=== PATIENT | male | born 1970 | race Caucasian/White ===

== ENCOUNTER 2019-12-24 21:25 | Emergency (ER) | payer MEDICARE, OTHER ==
[2019-12-24] MEDS ORDERED: BABY ASPIRIN 81 MG CHEW PO ONE (21:26)
[2019-12-24] MEDS ORDERED: Sodium Chloride 0.9% 1000 ML 1,000 ML IV ONE (21:26)
[2019-12-24] MEDS ORDERED: Sodium Chloride 0.9% 1000 ML 1,000 ML ONE (21:58)
[2019-12-24 23:09] LABS: Hematocrit 34.7 % (42-50); Red Blood Count 3.57 M/mm3 (4.1-5.6); White Blood Count 10.3 K/mm3 (4.0-10.5)
[2019-12-24 23:10] LABS: Mean Cell Volume 97.2 fl (78-100); Mean Corpuscular Hemoglobin 33.6 pg (26-32); Mean Corpuscular Hgb Concent. 34.6 g/dl (32-36); Mean Platelet Volume 11.1 fl (7.5-11.0); Platelet Count 202 K/mm3 (150-450)
[2019-12-24 23:11] LABS: Creatinine 1 1.73 mg/dL (0.66-1.25); Red Cell Distribution Width 12.4 % (11.5-14.0)
[2019-12-24 23:12] LABS: ALBUMIN 4.6 g/dL (3.5-5.0); BILIRUBIN,TOTAL 0.6 mg/dL (0.2-1.3); Calcium 10.4 mg/dL (8.4-10.2); Total Protein 7.7 g/dL (6.3-8.2)
[2019-12-24 23:13] LABS: TROPONIN 0.043 ng/mL (0.000-0.034)
[2019-12-25] MEDS ORDERED: Keppra 500 MG/5 ML ONE (00:02)
[2019-12-25] MEDS ORDERED: D5w 100ML Mini Bag 100 ML 100 ML IV ONE (00:02)
--- NOTE | 2019-12-25 09:09 | XRAY ---
Exam: CT of the head without IV contrast from 12/24/2019. CTDI: 53.92 mGy Comparison: None. Indication: 49-year-old male with left-sided weakness, rule out stroke. Technique: Non-IV contrast axial images were obtained through the brain. Reconstructed coronal and sagittal images were created and reviewed. Findings: The ventricles are prominent, more than expected in this 49-year-old patient suggesting some generalized atrophy. I see no focal mass effect or midline shift. There is at least moderate bilateral periventricular and subcortical white matter changes, largely probably due to chronic microvascular disease. I also note some mild asymmetric left frontal and left parietal-temporal encephalomalacia with a few tiny scattered sulci calcifications, presumably from old injury, infection, or infarct. There are also a couple calcifications seen just lateral to the right thalamus. No positive MCA sign is seen. There is no evidence of acute intracranial bleed or abnormal extra-axial fluid collection. There is moderate prominence of the cortical sulci and basilar cisterns, again consistent with greater atrophy than expected in this 49-year-old. The calvarium of the skull appears intact. Mild patchy soft tissue density is seen at the lower posterior margin of the right maxillary sinus and within the ethmoid sinus complex bilaterally consistent with chronic sinus disease/sinusitis. No air-fluid levels are seen. There is marked deviation of the anterior aspect of the nasal septum toward the right. The mastoid air cells appear unremarkable without effusion. Both middle ear cavities appear unremarkable. No abnormality is seen within either orbit. The patient's head is mildly tilted in the CT gantry. Impression: 1. Moderate global atrophy with moderate bilateral periventricular and subcortical degenerative microischemic changes. 2. No acute intracranial bleed is seen. 3. Mild left frontal and left temporal-parietal encephalomalacia with a few scattered tiny sulci calcifications, presumed from old injury, infection, or infarct. 4. Mild chronic bilateral ethmoid and right maxillary sinus disease/sinusitis. No air-fluid levels are seen.
--- NOTE | 2019-12-25 09:10 | XRAY ---
Exam: AP upright portable chest film from 12/24/2019. Comparison: None. Indication: Rule out stroke. Findings: The transverse heart size is normal. There is evidence of prior right-sided thoracotomy with some surgical clips seen just to the right of the lela and smaller surgical sutures oriented in a curvilinear fashion within the right upper lung field. Correlate with prior surgical history. There is mild relative volume loss within the right hemithorax as compared to the left. In fact, the left lung field appears mildly hyperinflated. A right-sided portacatheter is seen with the tip pointing inferiorly near the caval-atrial junction. Minimal transverse linear scarring or chronic plate atelectasis is seen within the peripheral right midlung field as well as adjacent to the dome of the right hemidiaphragm. No acute air space infiltrates, vascular congestion, pneumothorax, or pleural effusions are seen. There is moderate right apical pleural thickening/scarring. No acute osseous process is seen. Impression: 1. Postthoracotomy changes are seen within the right lung field, as discussed above. 2. A right-sided portacatheter is noted in place, as discussed above. 3. No acute cardiopulmonary disease is seen. 4. Minimal scattered linear scarring versus chronic plate atelectasis within right lung.
== END 2019-12-25 01:50 | disposition home or self-care (01) ==
LOC: ED 21:25
DX: R20.0 Anesthesia of skin (principal); R53.1 Weakness; R53.83 Other fatigue; M79.10 Myalgia, unspecified site; M25.50 Pain in unspecified joint; R52 Pain, unspecified; R42 Dizziness and giddiness; R27.0 Ataxia, unspecified; F32.9 Major depressive disorder, single episode, unspecified
CPT/HCPCS: 36415; 70450; 71045; 80053; 83605; 83735; 84484; 85027; 96360; 96365; 96368; Q3014; J1953; A9270-GY

== ENCOUNTER 2020-01-31 12:29 | Emergency (ER) | payer MEDICARE, OTHER ==
[2020-01-31] MEDS ORDERED: Sodium Chloride 0.9% 1000 ML 1,000 ML IV STA (12:47)
[2020-01-31 12:48] VITALS: BP 126/96; PULSE 112; O2SAT 98
--- NOTE | 2020-01-31 12:54 | ERPHSYRPT ---
- History of Present Illness Time Seen by Provider: 01/31/20 12:52 Source: patient Exam Limitations: no limitations Patient Subjective Stated Complaint: Possible UTI Triage Nursing Assessment: Patient brought back to ED via w/c and transferred to bed with assist of 2. Patient's skin pale, warm and dry. Patient complains of urgency and incontinence for the past few days. Patient has not had an appetite. Patient denies pain or discomfort. Lungs clear a/p rachael. Physician History: 49 years old male with history of metastatic lung cancer on palliative chemotherapy with neuropathy on multiple pain medication presented in ER with chief complaint of generalized weakness fatigue, loss of appetite and feels as if he is dehydrated. According to mother he has not eaten anything in 2 days. No vomiting or diarrhea. No fever or chills reported. He is feeling fatigued and tired with no energy to do his routine activities. Timing/Duration: day(s) (2), gradual onset, worse Severity: moderate Modifying Factors: Improves With: nothing Associated Symptoms: loss of appetite, malaise Allergies/Adverse Reactions: No Known Drug Allergies Allergy (Unverified 01/31/20 12:38) Hx Influenza Vaccination/Date Given: No Hx Pneumococcal Vaccination/Date Given: No Immunizations Up to Date: Yes Travel Risk - International Travel Have you traveled outside of the country in past 3 weeks: No - Coronavirus Screening Are you exhibiting any of the following symptoms?: No Close contact with a COVID-19 positive Pt in past 14-21 Days: No - Review of Systems Constitutional: Fatigue, Weakness Eyes: No Symptoms Ears, Nose, & Throat: No Symptoms Respiratory: No Symptoms Cardiac: No Symptoms Abdominal/Gastrointestinal: No Symptoms Genitourinary Symptoms: No Symptoms Musculoskeletal: Myalgias Skin: No Symptoms Neurological: No Symptoms Psychological: No Symptoms Endocrine: No Symptoms Hematologic/Lymphatic: No Symptoms Immunological/Allergic: No Symptoms - Past Medical History Neurological History: No Pertinent History Cardiac History: No Pertinent History Respiratory History: Lung Cancer Endocrine Medical History: Other Musculoskeletal History: Osteoarthritis Other Medical History: mets to liver, adrenal gland, brain CA, COPD, neck pain - Social History Smoking Status: Never smoker Exposure to second hand smoke: No Patient Lives Alone: No - Nursing Vital Signs Nursing Vital Signs: Initial Vital Signs Temperature 98.6 F 01/31/20 12:40 Pulse Rate 112 H 01/31/20 12:40 Respiratory Rate 18 01/31/20 12:40 Blood Pressure 126/96 01/31/20 12:40 O2 Sat by Pulse Oximetry 98 01/31/20 12:40 Pain Scale Pain Intensity 0 - Physical Exam General Appearance: no apparent distress, alert, cachetic Eye Exam: PERRL/EOMI, eyes nml inspection Ears, Nose, Throat Exam: normal ENT inspection, pharynx normal Neck Exam: normal inspection, non-tender, supple, full range of motion Respiratory Exam: normal breath sounds, lungs clear Cardiovascular Exam: regular rate/rhythm, normal heart sounds, normal peripheral pulses Gastrointestinal/Abdomen Exam: soft, normal bowel sounds, No tenderness Back Exam: normal inspection, normal range of motion Extremity Exam: normal inspection, normal range of motion, pelvis stable Neurologic Exam: alert, oriented x 3, cooperative, pickle cutter II-XII nml as tested Skin Exam: normal color SpO2 Interpretation: normal SpO2: 98 O2 Delivery: Room Air Ordered Tests: Active Orders 24 hr Category Date Time Status IV Insertion STAT Care 01/31/20 12:47 Active CHEST 1 VIEW (PORTABLE) Stat Exams 01/31/20 12:47 Taken BLOOD CULTURE Stat Lab 01/31/20 12:35 Received CBC W DIFF Stat Lab 01/31/20 12:50 Completed CMP Stat Lab 01/31/20 12:50 Completed LIPASE Stat Lab 01/31/20 12:50 Completed Lactic Acid Stat Lab 01/31/20 12:47 Completed UA W/RFX UR CULTURE Stat Lab 01/31/20 14:00 Completed Medication Summary Discontinued Medications Generic Name Dose Route Start Last Admin Trade Name Akua PRN Reason Stop Dose Admin Sodium Chloride 1,000 mls @ 999 mls/hr 01/31/20 12:47 01/31/20 14:49 Sodium Chloride 0.9% 1000 Ml IV 01/31/20 13:47 Infused .Q1H1M STA Infusion Sodium Chloride Confirm 01/31/20 13:37 Sodium Chloride 0.9% 1000 Ml Administered 01/31/20 13:38 Dose 1,000 mls @ ud .ROUTE .STK-MED ONE Lab/Rad Data: Laboratory Result Diagrams 01/31/20 12:50 01/31/20 12:50 Laboratory Results 01/31/20 01/31/20 01/31/20 Range/Units 14:00 12:50 12:50 WBC 5.5 (4.0-10.5) K/mm3 RBC 4.94 (4.1-5.6) M/mm3 Hgb 13.8 (12.5-18.0) gm/dl Hct 42.2 (42-50) % MCV 85.4 (78-100) fl MCH 27.9 (26-32) pg MCHC 32.7 (32-36) g/dl RDW 13.9 (11.5-14.0) % Plt Count 325 (150-450) K/mm3 MPV 9.6 (7.5-11.0) fl Gran % 60.3 (36.0-66.0) % Eos # (Auto) 0.22 (0-0.5) Absolute Lymphs (auto) 1.34 (1.0-4.6) Absolute Monos (auto) 0.60 (0.0-1.3) Lymphocytes % 24.4 (24.0-44.0) % Monocytes % 10.9 (0.0-12.0) % Eosinophils % 4.0 (0.00-5.0) % Basophils % 0.4 (0.0-0.4) % Absolute Granulocytes 3.32 (1.4-6.9) Basophils # 0.02 (0-0.4) Sodium 138 (137-145) mmol/L Potassium 3.9 (3.5-5.1) mmol/L Chloride 105 (98-107) mmol/L Carbon Dioxide 21 L (22-30) mmol/L Anion Gap 15.4 H (5-15) MEQ/L BUN 13 (9-20) mg/dL Creatinine 0.64 L (0.66-1.25) mg/dL Estimated GFR > 60.0 ML/MIN Glucose 131 H (74-106) mg/dL Lactic Acid (0.4-2.0) Calcium 10.5 H (8.4-10.2) mg/dL Total Bilirubin 0.60 (0.2-1.3) mg/dL AST 36 (17-59) U/L ALT 19 (0-50) U/L Alkaline Phosphatase 96 (38-126) U/L Serum Total Protein 8.1 (6.3-8.2) g/dL Albumin 4.6 (3.5-5.0) g/dL Lipase 227 (23-300) U/L Urine Color [place] (YELLOW) Urine Appearance SLIGHTLY CLOUDY (CLEAR) Urine pH 5.0 (5-6) Ur Specific [place] 1.027 (1.005-1.025) Urine Protein 30 (Negative) Urine Ketones TRACE (NEGATIVE) Urine Blood SMALL (0-5) Rachid/ul Urine Nitrite NEGATIVE (NEGATIVE) Urine Bilirubin NEGATIVE (NEGATIVE) Urine Urobilinogen NEGATIVE (0-1) mg/dL Ur Leukocyte Esterase NEGATIVE (NEGATIVE) Urine WBC (Auto) 3-5 (0-5) /HPF Urine RBC (Auto) 6-10 (0-2) /HPF U Epithel Cells (Auto) FEW (FEW) /HPF Urine Bacteria (Auto) RARE (NEGATIVE) /HPF Urine Mucus (Auto) SLIGHT (NEGATIVE) /HPF Urine Culture Reflexed NO (NO) Urine Glucose NEGATIVE (NEGATIVE) mg/dL 01/31/20 Range/Units 12:47 WBC (4.0-10.5) K/mm3 RBC (4.1-5.6) M/mm3 Hgb (12.5-18.0) gm/dl Hct (42-50) % MCV (78-100) fl MCH (26-32) pg MCHC (32-36) g/dl RDW (11.5-14.0) % Plt Count (150-450) K/mm3 MPV (7.5-11.0) fl Gran % (36.0-66.0) % Eos # (Auto) (0-0.5) Absolute Lymphs (auto) (1.0-4.6) Absolute Monos (auto) (0.0-1.3) Lymphocytes % (24.0-44.0) % Monocytes % (0.0-12.0) % Eosinophils % (0.00-5.0) % Basophils % (0.0-0.4) % Absolute Granulocytes (1.4-6.9) Basophils # (0-0.4) Sodium (137-145) mmol/L Potassium (3.5-5.1) mmol/L Chloride (98-107) mmol/L Carbon Dioxide (22-30) mmol/L Anion Gap (5-15) MEQ/L BUN (9-20) mg/dL Creatinine (0.66-1.25) mg/dL Estimated GFR ML/MIN Glucose (74-106) mg/dL Lactic Acid 1.5 (0.4-2.0) Calcium (8.4-10.2) mg/dL Total Bilirubin (0.2-1.3) mg/dL AST (17-59) U/L ALT (0-50) U/L Alkaline Phosphatase (38-126) U/L Serum Total Protein (6.3-8.2) g/dL Albumin (3.5-5.0) g/dL Lipase (23-300) U/L Urine Color (YELLOW) Urine Appearance (CLEAR) Urine pH (5-6) Ur Specific [place] (1.005-1.025) Urine Protein (Negative) Urine Ketones (NEGATIVE) Urine Blood (0-5) Rachid/ul Urine Nitrite (NEGATIVE) Urine Bilirubin (NEGATIVE) Urine Urobilinogen (0-1) mg/dL Ur Leukocyte Esterase (NEGATIVE) Urine WBC (Auto) (0-5) /HPF Urine RBC (Auto) (0-2) /HPF U Epithel Cells (Auto) (FEW) /HPF Urine Bacteria (Auto) (NEGATIVE) /HPF Urine Mucus (Auto) (NEGATIVE) /HPF Urine Culture Reflexed (NO) Urine Glucose (NEGATIVE) mg/dL - Progress Progress: improved Progress Note: 01/31/20 15:11 49 years old is evaluated for generalized weakness fatigue with decreased oral intake. Patient was dehydrated, given IV fluids, on reevaluation feeling better. Has normal white count. Chemistries consistent with some dehydration. No UTI. Chest x-ray did not show any acute findings. Patient is not febrile. Encouraged small frequent meals and hydration. Do not think patient needs any further work-up in the ER and is stable for discharge. Counseled pt/family regarding: lab results, diagnosis, need for follow-up, rad results - Departure Departure Disposition: Home Clinical Impression: General weakness, Dehydration Condition: Stable Critical Care Time: No Referrals: DOCTOR,NO FAMILY [Primary Care Provider] - Instructions: Generalized Weakness (DC) Additional Instructions: Plenty of fluids. Small frequent meals. Follow-up with your primary care physician for reevaluation. Return to ER for any worsening.
[2020-01-31 13:25] LABS: Absolute Neutrophil Ct (ANC) 3.32 (1.4-6.9); BASOPHIL % 0.4 % (0.0-0.4); Hematocrit 42.2 % (42-50); Hemoglobin 13.8 gm/dl (12.5-18.0); Lymphocyte (Absolute #) 1.34 (1.0-4.6); Lymphocytes % 24.4 % (24.0-44.0); Mean Cell Volume 85.4 fl (78-100); Mean Corpuscular Hemoglobin 27.9 pg (26-32); Mean Corpuscular Hgb Concent. 32.7 g/dl (32-36); Mean Platelet Volume 9.6 fl (7.5-11.0); Monocytes % 10.9 % (0.0-12.0); Neutrophil % 60.3 % (36.0-66.0); Platelet Count 325 K/mm3 (150-450); Red Blood Count 4.94 M/mm3 (4.1-5.6); Red Cell Distribution Width 13.9 % (11.5-14.0); White Blood Count 5.5 K/mm3 (4.0-10.5)
[2020-01-31 13:26] LABS: Basophil (Absolute #) 0.02 (0-0.4); Eosinophil (Absolute #) 0.22 (0-0.5)
[2020-01-31 13:31] LABS: ALBUMIN 4.6 g/dL (3.5-5.0); ALKALINE PHOSPHATASE 96 U/L (38-126); ANION GAP 15.4 MEQ/L (5-15); BLOOD UREA NITROGEN 13 mg/dL (9-20); CHLORIDE 105 mmol/L (98-107); Calcium 10.5 mg/dL (8.4-10.2); Carbon Dioxide 21 mmol/L (22-30); Creatinine 1 0.64 mg/dL (0.66-1.25); Glucose 131 mg/dL (74-106); LIPASE 227 U/L (23-300); Potassium 3.9 mmol/L (3.5-5.1); SGOT/AST 36 U/L (17-59); SGPT/ALT 19 U/L (0-50); SODIUM 138 mmol/L (137-145); Total Protein 8.1 g/dL (6.3-8.2)
[2020-01-31] MEDS ORDERED: Sodium Chloride 0.9% 1000 ML 1,000 ML ONE (13:37)
[2020-01-31 14:30] LABS: Appearance SLIGHTLY CLOUDY (CLEAR); Bacteria RARE /HPF (NEGATIVE); Bilirubin NEGATIVE (NEGATIVE); Blood SMALL Ery/ul (0-5); Glucose NEGATIVE (NEGATIVE); Ketones TRACE (NEGATIVE); Leukocyte Esterase NEGATIVE (NEGATIVE); Mucus SLIGHT /HPF (NEGATIVE); Nitrite NEGATIVE (NEGATIVE); Protein,Urine Dip 30 (Negative); Specific Gravity 1.027 (1.005-1.025); Urobilinogen NEGATIVE mg/dL (0-1)
[2020-01-31 14:31] LABS: Epithelial Cells FEW /HPF (FEW)
--- NOTE | 2020-01-31 17:03 | XRAY ---
Indication: Generalized weakness. Comparison: December 24, 2019. Portable chest demonstrates stable right lung postsurgical changes with lung volume loss. No focal infiltrate, consolidation, or large effusion. Heart is not enlarged again with right Port-A-Cath. Bony thorax intact. Impression: Continued nonacute chest with chronic features.
== END 2020-01-31 15:39 | disposition home or self-care (01) ==
LOC: ED 12:29
DX: R53.1 Weakness (principal); E86.0 Dehydration
CPT/HCPCS: 36000; 36415; 71045; 80053; 81001; 83605; 83690; 85025; 87040; 96360; 99284